=== PATIENT | female | born 1965 | race Caucasian/White ===

== ENCOUNTER → 2016-10-30 | Outpatient (CLI) | payer BC ==
--- NOTE | 2016-10-30 22:02 | DI ---
XR SHOULDER MIN 2VW,10/30/2016 2:58 PM: Clinical History: Left shoulder pain of unspecified chronicity. 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 The left lung and chest wall are unremarkable. There are cystic changes involving the greater tubercl e most consistent with impingement. The ribs and left lung are unremarkable. Impression: Status post resection of the left distal clavicle otherwise stable.
== END ==
LOC: ORTHO 15:08
PROVIDERS: ATTEND Orthopaedic Surgery
DX: M25.512 Pain in left shoulder (principal); M75.42 Impingement syndrome of left shoulder; M54.12 Radiculopathy, cervical region; Z98.890 Other specified postprocedural states
CPT/HCPCS: 73030

== ENCOUNTER → 2016-11-10 | Outpatient (CLI) | payer BC ==
--- NOTE | 2016-11-10 10:25 | DI ---
MRI CERVICAL SPINE SCAN, 11/10/2016 9:00 AM: Clinical History: Neck pain. Previous Exam: 02/09/2015. Sequences: Sagittal T1and T2 weighted. Axial T2 PLUS and FE 3D DUAL. Coronal T1 scans through the upp er cervical spine. The vertebral bodies are of normal height and size. There is mild to moderate narrowing of the C5-6 a nd C6-7 disc spaces. All cervical disc spaces show desiccation change. The cervical cord is normal. B oth cerebellar tonsils tonsils are at the level of the foramen magnum, but do not descend below the f oramen magnum. The C2-3 through C4-5 disc spaces are normal. C5-6 and C6-7 have mild circumferentiall y bulging but not herniated discs without canal or neural foraminal stenosis. The disc spaces from C7 -T1 through T3-4 are normal. Readin. There are bulging but not herniated discs without canal or neural foraminal stenosis at C5-6 and C6-7. 2. The disc spaces from C2-3 through C4-5, and from C7-T1 through T3-4 are normal.
== END ==
LOC: MRI 08:49
PROVIDERS: ATTEND Orthopaedic Surgery
DX: M54.2 Cervicalgia (principal); M47.812 Spondylosis without myelopathy or radiculopathy, cervical region
CPT/HCPCS: 72141